=== PATIENT | male | born 1965 | race Caucasian/White ===

== ENCOUNTER 2018-01-03 10:41 | Emergency (ER) | payer OTHER ==
[2018-01-03] MEDS ORDERED: MORPHINE SULFATE INJ 4 MG IVP ONE ×2 (10:47→11:36)
[2018-01-03] MEDS: NITROSTAT SL PRN ×2 (10:47→10:52)
[2018-01-03] MEDS ORDERED: MORPHINE SULFATE INJ 4 MG ONE (10:48)
[2018-01-03] MEDS ORDERED: ZOFRAN INJ 4 MG VIAL IVP ONE (10:49)
--- NOTE | 2018-01-03 10:52 | DR.CP ---
HPI - Time Seen Time seen: 10:45 - Complaint Chief Complaint Doctor Comments: Patient presents with complaint of severe mid- sternal chest pain of acute onset. He states that it feels like an elephant is on his chest. The pain is not relieved by NTG x3. There is no radiating, no diaphoresis. He had a ID [id number] requiring stent(s). 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 He is in moderate distress. PMH - PMH Past Medical History: ID Past Surgical History: Yes - Family History Family Medical History: Cancer, ID, Hypertension - Social History Do you use any recreational Drugs:: No ROS - Review of Systems Constitutional: negative: Diaphoresis Eyes: No Symptoms Reported ENTM: No Symptoms Reported Respiratoy: No Symptoms Reported Cardiovascular: No Symptoms Reported Gastrointestinal/Abdominal: No Symptoms Reported Genitourinary: No Symptoms Reported Neurological: No Symptoms Reported Musculoskeletal: No Symptoms Reported Integumentary: No Symptoms Reported Hematologic/Lymphatic: No Symptoms Reported Endocrine: No Symptoms Reported Psychiatric: No Symptoms Reported All Other Systems: Reviewed and Negative PE - Vitals Vitals: Temperature 98.9 F Pulse Rate 88 Respiratory Rate 20 Blood Pressure [Left Arm] 113/87 Blood Pressure [Right Arm] 158/96 Blood Pressure 169/103 O2 Sat by Pulse Oximetry 99 - General General Appearance: Alert, In Distress - Head Head Exam: Normal Inspection, Atraumatic - Eyes Eye exam: Normal Appearance, PERRL, EOMI - ENT ENT Exam: Normal Exam - Chest Chest Inspection: Normal Inspection, Symmetric Chest Wall Rise - Respiratory Respiratory Exam: Normal Lung Sounds Bilat Respiratory Exam: Bilateral Clear to Auscultation - Cardiovascular Cardiovascular Exam: Regular Rate, Normal Rhythm Pulse: Normal, Radial Edema: Normal - Abdominal Exam Abdominal Exam: Normal Inspection Abdominal Tenderness: negative: RUQ, RLQ, LUQ, LLQ, Epigastrium, Suprapubic, Diffuse, Mild, Moderate, Severe, Other - Extremities Extremities Exam: Normal Inspection, Full ROM - Back Back Exam: Normal Inspection, Full ROM - Neurologic Neurological Exam: Alert, Oriented X3, CN II-XII Intact - Psychiatric Psychiatric Exam: Normal Affect - Skin Skin Exam: Warm, Dry, Intact Course - Reevaluation 1st: Unchanged - Consultation Called: 11:15 (Dr Fried accepted patient for further evaluation) ROR - Labs Reviewed Laboratory Results Reviewed?: Yes (low potassium; Cardiacs negative) Result Diagrams: 02/23/18 10:40 01/03/18 10:40 Laboratory: WBC 10.3 X10^3/uL (3.6-10.0) H 01/03/18 10:40 RBC 5.00 X10^6/uL (4.7-6.0) 01/03/18 10:40 Hgb 15.8 g/dL (13.5-18.0) 01/03/18 10:40 Hct 45.6 % (42.0-54.0) 01/03/18 10:40 MCV 91.2 fL (80.0-100.0) 01/03/18 10:40 MCH 31.6 pg (27.0-34.0) 01/03/18 10:40 MCHC 34.6 g/dL (33.0-35.0) 01/03/18 10:40 RDW 12.7 % (11.6-16.5) 01/03/18 10:40 Plt Count 262 X10^3/uL (150.0-450.0) 01/03/18 10:40 Plt Count Comment Adequate (ADEQUATE) 01/03/18 10:40 MPV 8.3 fL (7.4-11.0) 01/03/18 10:40 Neut % 59.9 % (42.0-75.0) 01/03/18 10:40 Lymph % 30.0 % (21.0-51.0) 01/03/18 10:40 [place] % 8.7 % (0.0-13.0) 01/03/18 10:40 Eos % 0.7 % (0.9-2.9) L 01/03/18 10:40 Baso % 0.7 % (0.2-1.0) 01/03/18 10:40 Neut # 6.2 x10^3/uL (2.2-4.8) H 01/03/18 10:40 Lymph # 3.1 X10^3/uL (1.3-2.9) H 01/03/18 10:40 [place] # 0.9 x10^3/uL (0.3-0.8) H 01/03/18 10:40 Eos # 0.1 x10^3/uL (0.0-0.2) 01/03/18 10:40 Baso # 0.1 X10^3/uL (0.0-0.1) 01/03/18 10:40 Absolute Nucleated RBC 0.1 /100WBC 01/03/18 10:40 Total Counted 100 01/03/18 10:40 Neutrophils % (Manual) 65 % (39-76) 01/03/18 10:40 Band Neutrophils % 3 % (0-10) 01/03/18 10:40 Lymphocytes % (Manual) 20 % (13-43) 01/03/18 10:40 Monocytes % (Manual) 12 % (4-9) H 01/03/18 10:40 Plt Morphology Comment Normal (NORMAL) 01/03/18 10:40 RBC Morphology Normal (NORMAL) 01/03/18 10:40 INR Target Range - 01/03/18 10:40 INR 1.04 (0.8-1.3) 01/03/18 10:40 PTT 27.8 SECONDS (22.9-36.5) 01/03/18 10:40 PTT Comment - 01/03/18 10:40 Sodium 140 mmol/L (136-145) 01/03/18 10:40 Corrected Sodium TNP 01/03/18 10:40 Potassium 3.3 mmol/L (3.5-5.1) L 01/03/18 10:40 Chloride 103 mmol/L (98-107) 01/03/18 10:40 Carbon Dioxide 26.1 mmol/L (21-32) 01/03/18 10:40 BUN 13 mg/dL (7-18) 01/03/18 10:40 Creatinine 1.14 mg/dL (0.70-1.30) 01/03/18 10:40 Est GFR (MDRD) Af Amer > 60 (>60) 01/03/18 10:40 Est GFR (MDRD) Non-Af > 60 (>60) 01/03/18 10:40 Glucose 99 mg/dL (65-99) 01/03/18 10:40 Calcium 9.1 mg/dL (8.5-10.1) 01/03/18 10:40 Corrected Calcium TNP 01/03/18 10:40 Magnesium 1.7 mg/dL (1.7-2.9) 01/03/18 10:40 Total Bilirubin 0.40 mg/dL (0.2-1.0) 01/03/18 10:40 AST 16 Units/L (15-37) 01/03/18 10:40 ALT 31 Units/L (12-78) 01/03/18 10:40 Alkaline Phosphatase 51 Units/L (46-116) 01/03/18 10:40 Creatine Kinase 69 Units/L (39-308) 01/03/18 10:40 CK-MB (CK-2) 1.0 ng/mL (0-4.0) 01/03/18 10:40 CK/CKMB % Calc 1.5 % (<4) 01/03/18 10:40 Troponin I < 0.02 ng/mL (0-1.5) 01/03/18 10:40 Total Protein 7.2 g/dL (6.4-8.2) 01/03/18 10:40 Albumin 3.8 g/dL (3.4-5.0) 01/03/18 10:40 Globulin 3.4 g/dL (2.5-4.5) 01/03/18 10:40 Albumin/Globulin Ratio 1.1 Ratio (1.1-2.1) 01/03/18 10:40 Triglycerides 179 mg/dL (0-150) H 01/03/18 10:40 Cholesterol 211 mg/dL (0-200) H 01/03/18 10:40 LDL Cholesterol, Calc 141 mg/dL (0-100) H 01/03/18 10:40 HDL Cholesterol 34 mg/dL (40-60) L 01/03/18 10:40 Cholesterol/HDL Ratio 6.2 (0.0-5.0) H 01/03/18 10:40 - XRAY XRAY Interpreted by: Radiologist (Chest: No acute cardiopulmonary disease), Self (Heart size slightly enlarged with left perihilar congestion) - EKG Compared to prior EKG Dated: 09/20/14 Block: None ST: Nonsp - Diagnosis Discharge Problem: Hypokalemia Chest pain Qualifiers: Chest pain type: unspecified Qualified Code(s): R07.9 - Chest pain, unspecified - Discharge Plan Condition: Stable - Follow ups/Referrals Follow ups/Referrals: Og Pittman [Primary Care Provider] - 3 days - Instructions
[2018-01-03 10:53] VITALS: BMI 25.7
[2018-01-03 10:58] LABS: BASOPHILS # (AUTO) 0.1 X10^3/uL (0.0-0.1); BASOPHILS % (AUTO) 0.7 % (0.2-1.0); EOSINOPHILS # (AUTO) 0.1 x10^3/uL (0.0-0.2); EOSINOPHILS % (AUTO) 0.7 % (0.9-2.9); HEMATOCRIT 45.6 % (42.0-54.0); HEMOGLOBIN 15.8 g/dL (13.5-18.0); LYMPHOCYTES # (AUTO) 3.1 X10^3/uL (1.3-2.9); MEAN CORPUSCULAR HEMOGLOBIN 31.6 pg (27.0-34.0); MEAN CORPUSCULAR HGB CONC 34.6 g/dL (33.0-35.0); MEAN CORPUSCULAR VOLUME 91.2 fL (80.0-100.0); MEAN PLATELET VOLUME 8.3 fL (7.4-11.0); MONOCYTES # (AUTO) 0.9 x10^3/uL (0.3-0.8); MONOCYTES % (AUTO) 8.7 % (0.0-13.0); NEUTROPHILS # (AUTO) 6.2 x10^3/uL (2.2-4.8); NEUTROPHILS % (AUTO) 59.9 % (42.0-75.0); PLATELET COUNT 262 X10^3/uL (150.0-450.0); RED CELL DISTRIBUTION WIDTH 12.7 % (11.6-16.5); WHITE BLOOD COUNT 10.3 X10^3/uL (3.6-10.0)
[2018-01-03] MEDS ORDERED: ASPIRIN PO SCH (11:00)
[2018-01-03] MEDS ORDERED: NS 1000 ML 1,000 ML IV SCH (11:00)
[2018-01-03 11:07] LABS: CHOL/HDL RATIO 6.2 (0.0-5.0)
[2018-01-03 11:13] LABS: BLOOD UREA NITROGEN 13 mg/dL (7-18); CALCIUM 9.1 mg/dL (8.5-10.1); CARBON DIOXIDE 26.1 mmol/L (21-32); CHLORIDE 103 mmol/L (98-107); CREATININE 1.14 mg/dL (0.70-1.30); SODIUM 140 mmol/L (136-145); TROPONIN I < 0.02 ng/mL (0-1.5); eGFR BLACK RACES > 60 (>60); eGFR NON BLACK RACES > 60 (>60)
[2018-01-03 11:31] LABS: ALANINE AMINOTRANSFERASE 31 Units/L (12-78); ALBUMIN 3.8 g/dL (3.4-5.0); ALKALINE PHOSPHATASE 51 Units/L (46-116); ASPARTATE AMINO TRANSFERASE 16 Units/L (15-37); CKMB % 1.5 % (<4); CREATINE KINASE 69 Units/L (39-308); MAGNESIUM 1.7 mg/dL (1.7-2.9); TOTAL PROTEIN 7.2 g/dL (6.4-8.2)
--- NOTE | 2018-01-03 11:32 | RAD ---
HISTORY: Chest pain Study: Single-view of chest Comparison: September 20, 2014 Findings: The trachea is midline. The cardiac silhouette is unremarkable. The lungs are clear without focal i nfiltrate or effusion. IMPRESSION: 1. No acute cardiopulmonary disease. Reported By:
[2018-01-03 11:33] LABS: BAND NEUTROPHILS % 3 % (0-10)
[2018-01-03 11:35] LABS: PLATELET MORPHOLOGY COMMENT NORMAL (NORMAL)
[2018-01-03 12:44] VITALS: BP 120/83
== END 2018-01-03 12:31 | disposition short-term general hospital (02) ==
LOC: ER 10:46
DX: R07.89 Other chest pain (principal); E87.6 Hypokalemia
CPT/HCPCS: 36415; 71045; 80053; 80061; 82550; 82553; 83735; 84484; 85025; 85610; 85730; 93005; 93010; 96365; 96367; 96374; 96375; 99285; A4222; J2270

== ENCOUNTER 2020-10-01 21:05 | Observation (INO) ==
--- NOTE | 2020-10-01 21:14 | DR.AINTOX ---
HPI - Time Seen Time seen: 21:11 - Complaint Doctors Chief Complaint Comments: EMS states the patient was unresponsive setting in the swing for about ten minutes until they got there and he responded to ammonium nitrate capsule and sternal massage. Patient lethargic and vomited several times enroute to the emergency room. Family said he drank a fifth of [place] Evans in three hours. Patient states he has had three heart attack with the last one a year ago and he has had five stents. States he is a patient of Dr. Pittman and he drinks a couple of beers and denies tobacco or drug usage. He denies chest pain, SOB, cold or cough. - Source History Provided: Patient, EMS - Mode of Arrival Mode of Arrival: EMS - Duration Onset of Chief Complaint: 30 Chief Complaint Onset (Days, Months): Minutes Drinking For:: Hours Altered Mental Status for: unknown - Context Ingested: ETOH Circumstances: Found Unconscious History Of: Alcoholism Last Tetanus: Unknown - Associated Signs and Symptoms Associated Signs and Symptoms: Nausea, Vomiting PMH - PMH Past Medical History: Hypertension, [place] Past Surgical History: Yes Surgical History: Angioplasty/Stents, Other - Family History Family Medical History: Cancer, [place], Hypertension - Social History Do you use any recreational Drugs:: No ROS - Review of Systems Constitutional: No Symptoms Reported Eyes: No Symptoms Reported ENTM: No Symptoms Reported Respiratoy: No Symptoms Reported Cardiovascular: No Symptoms Reported Gastrointestinal/Abdominal: No Symptoms Reported, Nausea, Vomiting Genitourinary: No Symptoms Reported Neurological: No Symptoms Reported Musculoskeletal: No Symptoms Reported Integumentary: No Symptoms Reported Hematologic/Lymphatic: No Symptoms Reported Endocrine: No Symptoms Reported Psychiatric: No Symptoms Reported. negative: See HPI, Anxiety, Depression, Hallucinations, Excessive crying, Suicidal, Other PE - General Limitations: No Limitations General Appearance: Alert, In Distress (moderate) - Head Head Exam: Normal Inspection, Atraumatic, Normocephalic Head Exam Physical: negative: Laceration, Abrasion, Contusion, Hematoma, Raccoon Eyes, Proctor's Sign, Tenderness of Temporal Artery, CSF Rhinorrhea, CSF Otorrhea, Other - Eyes Eye exam: Normal Appearance, PERRL, EOMI. negative: Scleral Icterus, Conj unctival Injection, Nystagmus, Miosis, Mydrasis, Periorbital Swelling, Periorbital Tenderness, Other Pupils: Regular, Round: Bilateral, Reactive: Bilateral Sclera/Conjunctival: Normal Inspection: Bilateral - ENT ENT Exam: Normal Exam, Normal Oropharynx, Normal External Ear Exam, Mucous Membranes Moist, TM's Normal Bilaterally - Neck Neck Exam: Normal Inspection, Full ROM, Trachea Midline - Chest Chest Inspection: Normal Inspection, Symmetric Chest Wall Rise. negative: Tenderness, Rash, Abscess, Other - Respiratory Respiratory Exam: Normal Lung Sounds Bilat Respiratory Exam: Bilateral Clear to Auscultation - Cardiovascular Cardiovascular Exam: Regular Rate, Normal Rhythm, Systolic Murmur - Abdominal Exam Abdominal Exam: Normal Inspection, Normal Bowel Sounds, Soft Abdominal Tenderness: negative: RUQ, RLQ, LUQ, LLQ, Epigastrium, Suprapubic, Diffuse, Mild, Moderate, Severe, Other - Extremities Extremities Exam: Normal Inspection, Full ROM, Normal Capillary Refill. negative: Tenderness, Edema, Joint Swelling, Calf Tenderness, Other - Back Back Exam: Normal Inspection, Full ROM. negative: Tenderness, (R) CVA Tenderness, (L) CVA Tenderness, Muscle Spasm, Paraspinal Tenderness, Vertebral Tenderness, Rashes, (R) Sciatic Notch Tenderness, (L) Sciatic Notch Tendern, (R) Straight Leg Raise, (L) Straight Leg Raise, Other - Neurologic Neurological Exam: Alert, Oriented X3, CN II-XII Intact, Reflexes Normal. negative: Normal Gait (gait not tested) Cranial Nerve Exam: EOM Function (II, III, IV, ): Normal, Facial Sensation (V): Normal, Gag reflex (XI): Normal Motor Strength - LUE: 5/5 Motor Strength - RUE: 5/5 Motor Strength - LLE: 5/5 Motor Strength - RLE: 5/5 Upper Motor Neuron Exam: Babinski Sign: Normal Sensory Exam Upper Extremity: Light Touch: Normal Sensory Exam Lower Extremity: Light Touch: Normal DTR: Patellar (L): 2+, patellar (R): 2+ - Psychiatric Psychiatric Exam: Normal Affect, Normal Mood - Vitals Vital Signs: Temp Pulse Pulse Resp BP BP BP 10/02/20 02:24 18 10/02/20 01:24 20 10/02/20 00:00 100 H 33 H 138/83 10/01/20 23:00 74 19 124/78 10/01/20 22:42 82 16 146/83 10/01/20 22:30 62 14 114/63 10/01/20 22:00 68 16 129/70 10/01/20 21:30 60 16 128/80 10/01/20 21:08 97.6 F 68 18 118/73 10/01/20 21:07 62 18 118/73 09/19/19 10:49 120/77 Pulse Ox 10/02/20 02:24 10/02/20 01:24 10/02/20 00:00 100 10/01/20 23:00 96 10/01/20 22:42 98 10/01/20 22:30 10/01/20 22:00 10/01/20 21:30 10/01/20 21:08 99 10/01/20 21:07 100 09/19/19 10:49 Course - Consultation Called: 02:46 Call Returned: 02:47 (Dr. Pittman to admit) - Education/Counseling Education/Counseling: Patient, Family Educated On: Treatment, Diagnosis, Needs for Follow Up ROR - Labs Reviewed Laboratory Results Reviewed?: Yes (All labs and x-ray results reviewed and discussed with patient) Result Diagrams: 10/01/20 21:33 10/02/20 01:39 - XRAY XRAY Interpreted by: Radiologist (CT head: No evidence of acute intracranial bleed. No mass of midline shift. Soft tissue scalp swelling posterior parietl bone.) - EKG Rate: 82 Isabella: Normal Rhythm: Paced Block: None Hypertrophy: None ST: Old, Ant, Infarct - Labs Reviewed Laboratory: WBC 12.6 X10^3/uL (3.6-10.0) H 10/01/20 21:33 RBC 4.53 X10^6/uL (4.7-6.0) L 10/01/20 21:33 Hgb 14.3 g/dL (13.5-18.0) 10/01/20 21:33 Hct 43.4 % (42.0-54.0) 10/01/20 21:33 MCV 95.8 fL (80.0-100.0) 10/01/20 21:33 MCH 31.6 pg (27.0-34.0) 10/01/20 21:33 MCHC 32.9 g/dL (33.0-35.0) L 10/01/20 21:33 RDW 13.7 % (11.6-16.5) 10/01/20 21:33 Plt Count 240 X10^3/uL (150.0-450.0) 10/01/20 21: MPV 7.8 fL (7.4-11.0) 10/01/20 21:33 Neut % (Auto) 52.2 % (42.0-75.0) 10/01/20 21: Lymph % (Auto) 37.1 % (21.0-51.0) 10/01/20 21: [place] % (Auto) 9.1 % (0.0-13.0) 10/01/20 21: Eos % (Auto) 1.0 % (0.9-2.9) 10/01/20 21: Baso % (Auto) 0.6 % (0.2-1.0) 10/01/20 21: Neut # (Auto) 6.6 x10^3/uL (2.2-4.8) H 10/01/20 21: Lymph # (Auto) 4.7 X10^3/uL (1.3-2.9) H 10/01/20 21:33 [place] # (Auto) 1.2 x10^3/uL (0.3-0.8) H 10/01/20 21:33 Eos # (Auto) 0.1 x10^3/uL (0.0-0.2) 10/01/20 21: Baso # (Auto) 0.1 X10^3/uL (0.0-0.1) 10/01/20 21: Absolute Nucleated RBC 0.1 /100WBC 10/01/20 21: PT 13.4 SECONDS (11.8-14.3) 10/01/20 21:33 INR Target Range - 10/01/20: INR 1.05 (0.8-1.3) 10/01/20 21: APTT 27.6 SECONDS (22.9-36.5) 10/01/20 21: PTT Comment - 10/01/20 21:33 Sodium 139 mmol/L (136-145) 10/02/20 01:39 Corrected Sodium TNP 10/02/20 01:39 Potassium 3.1 mmol/L (3.5-5.1) L 10/02/20 01:39 Chloride 104 mmol/L (98-107) 10/02/20 01:39 Carbon Dioxide 21.2 mmol/L (21-32) 10/02/20 01:39 BUN 17 mg/dL (7-18) 10/02/20 01:39 Creatinine 0.81 mg/dL (0.70-1.30) 10/02/20 01:39 Est GFR (MDRD) Af Amer > 60 (>60) 10/02/20 01:39 Est GFR (MDRD) Non-Af > 60 (>60) 10/02/20 01:39 Glucose 103 mg/dL (65-99) H 10/02/20 01:39 Calcium 8.9 mg/dL (8.5-10.1) 10/02/20 01:39 Corrected Calcium TNP 10/01/20 21:33 Magnesium 1.6 mg/dL (1.7-2.9) L 10/01/20 21:33 Total Bilirubin 0.40 mg/dL (0.2-1.0) 10/01/20 21:33 AST 17 Units/L (15-37) 10/01/20 21:33 ALT 25 Units/L (12-78) 10/01/20 21:33 Alkaline Phosphatase 41 Units/L (46-116) L 10/01/20 21:33 Creatine Kinase 85 Units/L (39-308) 10/01/20 23:20 CK-MB (CK-2) 1.2 ng/mL (0-4.0) 10/01/20 23:20 CK/CKMB % Calc 1.4 % (<4) 10/01/20 23:20 Troponin I < 0.02 ng/mL (0-1.5) 10/01/20 23:20 Total Protein 6.9 g/dL (6.4-8.2) 10/01/20 21:33 Albumin 4.0 g/dL (3.4-5.0) 10/01/20 21:33 Globulin 2.9 g/dL (2.5-4.5) 10/01/20 21:33 Albumin/Globulin Ratio 1.4 Ratio (1.1-2.1) 10/01/20 21:33 Specimen Type Catherized urine 10/01/20 22:53 Urine Color Yellow (YELLOW) 10/01/20 22:53 Urine Appearance Clear (CLEAR) 10/01/20 22:53 Urine pH 6.0 (5.0 - 8.0) 10/01/20 22:53 Ur Specific [place] 1.015 (1.000-1.030) 10/01/20 22:53 Urine Protein Negative (NEGATIVE) 10/01/20 22:53 Urine Glucose (UA) Negative (NEGATIVE) 10/01/20 22:53 Urine Ketones Negative (NEGATIVE) 10/01/20 22:53 Urine Occult Blood 2+ (NEGATIVE) 10/01/20 22:53 Urine Nitrite Negative (NEGATIVE) 10/01/20 22:53 Urine Bilirubin Negative (NEGATIVE) 10/01/20 22:53 Urine Urobilinogen Normal (NORMAL) 10/01/20 22:53 Ur Leukocyte Esterase Negative (NEGATIVE) 10/01/20 22:53 Urine RBC 0-2 /HPF (0-3) 10/01/20 22:53 Urine WBC 0-2 /HPF (0-5) 10/01/20 22:53 Ur Squamous Epith Cells Rare /HPF (NEGATIVE) 10/01/20 22:53 Urine Bacteria Trace /HPF (NEGATIVE) 10/01/20 22:53 Ur Culture Indicated? No/not indicated 10/01/20 22:53 Urine Opiates Screen Negative (NEG=<300) 10/01/20 22:53 Urine Methadone Screen Negative (NEG=<300) 10/01/20 22:53 Ur Barbiturates Screen Negative (NEG=<200) 10/01/20 22:53 Ur Phencyclidine Scrn Negative (NEG=<25) 10/01/20 22:53 Ur Amphetamines Screen Negative (NEG=<1000) 10/01/20 22:53 U Benzodiazepines Scrn Negative (NEG=<200) 10/01/20 22:53 Urine Cocaine Screen Negative (NEG=<300) 10/01/20 22:53 U Marijuana (THC) Screen Negative (NEG=<50) 10/01/20 22:53 Ethyl Alcohol mg/dL 179 mg/dL (0-19.9) H 10/01/20 21:33 SARS-CoV-2 (PCR) Negative (NEGATIVE) 10/02/20 01:40 - XRAY Xray Findings: CXR: Evidence of cardiomegaly. Finding consistent with CHF. COPD/emphysema stable. (MARGARET CERNA) Opioid - Opioid Risk Tool Age (Jose Manuel box if 16-45): No History of Preadolescent Sexual Abuse: No Total: 0 Total Score Risk Category: Low Risk - Diagnosis Discharge Problem: Bronchitis, Chest pain in adult, Hypokalemia, COPD (chronic obstructive pulmonary disease), Hyperglycemia Syncope Qualifiers: Encounter type: initial encounter Alcohol intoxication in active alcoholic Qualifiers: Complication of substance-induced condition: uncomplicated Qualified Code(s): F10.220 - Alcohol dependence with intoxication, uncomplicated - Discharge Plan Disposition: ADMITTED INPATIENT Condition: Stable - Follow ups/Referrals Follow ups/Referrals: Og Pittman [Primary Care Provider] - 3 days - Instructions
[2020-10-01] MEDS ORDERED: NS 1000 ML 1,000 ML ONE (21:27)
--- NOTE | 2020-10-01 21:38 | CT ---
HISTORYSYNCOPE alcohol intoxication vomiting.STUDYBRAIN W/O CONCOMPARISONNoneTECHNIQUEMultiple CT axial images of the head were obtained without IV contrast. Coronal and sagittal images were reconstructed. Dose reduction techniques included Automated Exposure Control (AEC) and adjustment of mA and kV.FINDINGSGray and white matter have normal differentiation. There is no mass, shift, or hemorrhage. Cerebellar tonsils are at an appropriate level. No fluid in the sinuses or mucosal thickening to suggest sinusitis. There is no mastoid effusion.IMPRESSION1. No acute findingElectronically signed by: Nathan Jensen (Oct 01, 2020 21:36:37)
--- NOTE | 2020-10-01 21:38 | RAD ---
EXAM: CHEST X-RAYHISTORY: Chest pain.TECHNIQUE: AP chest x-ray dated 10/01/2020 at 9:18 PM.COMPARISON: CXR dated May 01, 2019.FINDINGS:There is interval appearance of a left anterior chest wall subclavian cardiac pacer with intact pacer wires to the right atrium and right ventricle.There is evidence for cardiomegaly. The pulmonary vascularity and interstitial markings are diffusely prominent, especially in the lower lung stoner, in keeping with mild CHF or volume overload in the appropriate clinical setting; differential diagnosis includes (but is not limited to) mild bronchitis and interstitial pneumonia in the appropriate clinical setting.There is lung parenchymal hyperlucency in keeping with COPD/emphysema (stable). There is no gross focal lung consolidation, pleural effusion, or pneumothorax seen. The visualized bony structures are within normal limits.IMPRESSION:1. Findings consistent with mild CHF or volume overload in the appropriate clinical setting (new findings); DDX includes (but is not limited to) mild bronchitis and interstitial pneumonia (rule out Covid pneumonia) in the appropriate clinical setting. Recommend clinical correlation and appropriate follow evaluation to ensure interval clearance as clinically warranted.2. Lung parenchymal hyperlucency in keeping with COPD/emphysema (stable).Electronically signed by: Mike Martinez (Oct 01, 2020 21:35:55)
[2020-10-01 21:45] LABS: BASOPHILS # (AUTO) 0.1 X10^3/uL (0.0-0.1); BASOPHILS % (AUTO) 0.6 % (0.2-1.0); EOSINOPHILS # (AUTO) 0.1 x10^3/uL (0.0-0.2); HEMATOCRIT 43.4 % (42.0-54.0); HEMOGLOBIN 14.3 g/dL (13.5-18.0); LYMPHOCYTES # (AUTO) 4.7 X10^3/uL (1.3-2.9); LYMPHOCYTES % (AUTO) 37.1 % (21.0-51.0); MEAN CORPUSCULAR HEMOGLOBIN 31.6 pg (27.0-34.0); MEAN CORPUSCULAR HGB CONC 32.9 g/dL (33.0-35.0); MEAN CORPUSCULAR VOLUME 95.8 fL (80.0-100.0); MEAN PLATELET VOLUME 7.8 fL (7.4-11.0); MONOCYTES # (AUTO) 1.2 x10^3/uL (0.3-0.8); MONOCYTES % (AUTO) 9.1 % (0.0-13.0); NEUTROPHILS # (AUTO) 6.6 x10^3/uL (2.2-4.8); NEUTROPHILS % (AUTO) 52.2 % (42.0-75.0); PLATELET COUNT 240 X10^3/uL (150.0-450.0); RED BLOOD COUNT 4.53 X10^6/uL (4.7-6.0); RED CELL DISTRIBUTION WIDTH 13.7 % (11.6-16.5); WHITE BLOOD COUNT 12.6 X10^3/uL (3.6-10.0)
[2020-10-01] MEDS ORDERED: NS 1000 ML 1,000 ML IV SCH (22:00)
[2020-10-01 22:19] LABS: ALANINE AMINOTRANSFERASE 25 Units/L (12-78); ALKALINE PHOSPHATASE 41 Units/L (46-116); ASPARTATE AMINO TRANSFERASE 17 Units/L (15-37); BLOOD ALCOHOL 179 mg/dL (0-19.9); BLOOD UREA NITROGEN 20 mg/dL (7-18); CALCIUM 8.9 mg/dL (8.5-10.1); CARBON DIOXIDE 24.1 mmol/L (21-32); CHLORIDE 103 mmol/L (98-107); CKMB % 1.1 % (<4); COR NA(FOR HYPERGLY) 141 mmol/L (136-145); CREATINE KINASE 88 Units/L (39-308); CREATININE 0.91 mg/dL (0.70-1.30); MAGNESIUM 1.6 mg/dL (1.7-2.9); SODIUM 140 mmol/L (136-145); TOTAL PROTEIN 6.9 g/dL (6.4-8.2); TROPONIN I < 0.02 ng/mL (0-1.5); eGFR NON BLACK RACES > 60 (>60)
[2020-10-01] MEDS ORDERED: KLOR-CON PO ONE (22:32)
[2020-10-01] MEDS ORDERED: KLOR-CON ONE (22:34)
[2020-10-01] MEDS ORDERED: ZOFRAN INJ 4 MG VIAL IVP ONE (22:38)
[2020-10-01] MEDS ORDERED: ZOFRAN INJ 4 MG VIAL ONE (22:39)
[2020-10-01 23:09] LABS: BILIRUBIN,URINE NEGATIVE (NEGATIVE); BLOOD/HEMOGLOBIN,URINE 2+ (NEGATIVE); GLUCOSE, URINE NEGATIVE (NEGATIVE); KETONES,URINE NEGATIVE (NEGATIVE); LEUKOCYTE ESTERASE ,URINE NEGATIVE (NEGATIVE); NITRITES,URINE NEGATIVE (NEGATIVE); PROTEIN,URINE NEGATIVE (NEGATIVE); UROBILINOGEN,URINE NORMAL (NORMAL)
[2020-10-01 23:38] LABS: APPEARANCE,URINE CLEAR (CLEAR); COLOR,URINE YELLOW (YELLOW)
[2020-10-01 23:48] LABS: CKMB % 1.4 % (<4); CREATINE KINASE 85 Units/L (39-308); CREATINE KINASE MB 1.2 ng/mL (0-4.0); TROPONIN I < 0.02 ng/mL (0-1.5)
--- NOTE | 2020-10-02 00:25 | CT ---
STUDY: CT HEAD WITHOUT IV CONTRASTCOMPARISON: NoneTECHNIQUE: axial images were acquired of the head without IV contrast. Coronal and sagittal images were provided. All images were reviewed in a variety of windows and levels.LIMITATIONS: Please note that CT has low sensitivity and accuracy for identifying acute infarction. In addition, there are portions of the brain that are affected by beam hardening artifact which further greatly limits identification of an acute infarct.RADIATION REDUCTION TECHNIQUE: Automated exposure control, Adjustment of the mA and/or kV according to patient size, or iterative reconstruction techniques were used.HISTORY: UNRESPONSIVE, SIEZURE ACTIVITYFINDINGS: Soft tissue scalp swelling is seen overlying the posterior parietal bone near midline within underlying nodule measuring 22 x 11 mm..There is no evidence of an acute intracranial bleed.There is no evidence of a mass or midline shift.There is no evidence of an extra-axial fluid collection.The adams-white matter differentiation is within normal limits.The visualized bones are unremarkable.The visualized sinuses are clear.The mastoid air cells are well-aerated.IMPRESSION:THERE IS NO EVIDENCE OF AN ACUTE INTRACRANIAL BLEEDElectronically signed by: Scottie Peacock (Oct 02, 2020 00:23:37)
[2020-10-02] MEDS ORDERED: NITRO-BID OINT 2% UD (E.R. USE ONLY) TD ONE (01:08)
[2020-10-02] MEDS ORDERED: TYLENOL 325 MG TAB PO ONE ×3 (01:10→19:56)
[2020-10-02] MEDS ORDERED: NITRO-BID OINT 2% UD (E.R. USE ONLY) ONE (01:15)
[2020-10-02 01:24] LABS: BACTERIA,URINE TRACE /HPF (NEGATIVE); RBC,URINE 0-2 /HPF (0-3); SQUAMOUS EPITHELIAL CELL,UR RARE /HPF (NEGATIVE)
[2020-10-02] MEDS ORDERED: ROCEPHIN VIAL 1 GRAM 1 G in NS 100 ML IV + SPIKE MINIBAG* 100 ML IV ONE (01:36)
[2020-10-02 01:54] LABS: BLOOD UREA NITROGEN 17 mg/dL (7-18); CALCIUM 8.9 mg/dL (8.5-10.1); CARBON DIOXIDE 21.2 mmol/L (21-32); CHLORIDE 104 mmol/L (98-107); CREATININE 0.81 mg/dL (0.70-1.30); SODIUM 139 mmol/L (136-145); eGFR NON BLACK RACES > 60 (>60)
[2020-10-02] MEDS: ROCEPHIN 1 GRAM IV PREMIX 1 G/50 ML IV.SOLN. IV ONE ×2 (02:22→02:25)
[2020-10-02] MEDS ORDERED: MAGNESIUM SULFATE 1 GRAM/100 mL PREMIX 1 G/100 ML BAG IV ONE (02:46)
[2020-10-02] MEDS ORDERED: NS 1/2 + KCL 20 MEQ/L 1,000 ML IV ONE (03:08)
[2020-10-02] MEDS: NS 1/2 + KCL 20 MEQ/L 1,000 ML IV SCH ×4 (03:11→22:25)
[2020-10-02 03:31] LABS: BASOPHILS % (AUTO) 0.2 % (0.2-1.0); EOSINOPHILS % (AUTO) 0.1 % (0.9-2.9); HEMOGLOBIN 13.8 g/dL (13.5-18.0); LYMPHOCYTES # (AUTO) 2.4 X10^3/uL (1.3-2.9); LYMPHOCYTES % (AUTO) 24.7 % (21.0-51.0); MEAN CORPUSCULAR HEMOGLOBIN 31.6 pg (27.0-34.0); MEAN CORPUSCULAR HGB CONC 32.8 g/dL (33.0-35.0); MEAN CORPUSCULAR VOLUME 96.3 fL (80.0-100.0); MEAN PLATELET VOLUME 7.8 fL (7.4-11.0); MONOCYTES # (AUTO) 0.4 x10^3/uL (0.3-0.8); MONOCYTES % (AUTO) 4.2 % (0.0-13.0); NEUTROPHILS # (AUTO) 6.7 x10^3/uL (2.2-4.8); NEUTROPHILS % (AUTO) 70.8 % (42.0-75.0); PLATELET COUNT 183 X10^3/uL (150.0-450.0); RED BLOOD COUNT 4.36 X10^6/uL (4.7-6.0); RED CELL DISTRIBUTION WIDTH 13.6 % (11.6-16.5); WHITE BLOOD COUNT 9.5 X10^3/uL (3.6-10.0)
[2020-10-02 03:49] LABS: ALANINE AMINOTRANSFERASE 23 Units/L (12-78); ALBUMIN 3.6 g/dL (3.4-5.0); ALKALINE PHOSPHATASE 38 Units/L (46-116); ASPARTATE AMINO TRANSFERASE 13 Units/L (15-37); BLOOD UREA NITROGEN 15 mg/dL (7-18); CALCIUM 8.5 mg/dL (8.5-10.1); CARBON DIOXIDE 22.4 mmol/L (21-32); CHLORIDE 106 mmol/L (98-107); CHOL/HDL RATIO 2.6 (0.0-5.0); CHOLESTEROL 113 mg/dL (0-200); CKMB % 1.2 % (<4); CREATINE KINASE 82 Units/L (39-308); CREATININE 0.84 mg/dL (0.70-1.30); HDL CHOLESTEROL 44 mg/dL (40-60); SODIUM 142 mmol/L (136-145); TOTAL PROTEIN 6.1 g/dL (6.4-8.2); TRIGLYCERIDES 63 mg/dL (0-150); TROPONIN I < 0.02 ng/mL (0-1.5); eGFR NON BLACK RACES > 60 (>60)
[2020-10-02] MEDS ORDERED: ZOFRAN INJ 4 MG VIAL IVP PRN (04:11)
[2020-10-02 05:53] VITALS: BMI 24.7
[2020-10-02 09:35] LABS: CKMB % 1.1 % (<4); CREATINE KINASE 89 Units/L (39-308); CREATINE KINASE MB < 1.0 ng/mL (0-4.0); TROPONIN I < 0.02 ng/mL (0-1.5)
[2020-10-02] MEDS: NITRO-BID OINT 2% Multi-Dose tube TD SCH ×2 (11:14→15:22)
--- NOTE | 2020-10-02 11:29 | DR.H&P ---
H&P - History & Physical for Day of: H&P Date: 10/02/20 - Chief Complaint Chief Complaint: SYNCOPE, ALCOHOL INTOXICATION, VOMITING - History of Present Illness History of Present Illness: IS A 55 YEAR OLD PATIENT OF OURS WHO PRESENTED TO THE ER VIA EMS. EMS REPORTS THAT ON ARRIVAL TO SCENE, HE WAS UNRESPONSIVE, SITTING IN THE SWING. PATIENTS SPOUSE REPORTS THAT HE HAD BEEN UNRESPONSIVE FOR APPROXIMATELY TEN MINUTES. EMS REPORTS THAT PATIENT RESPONDED TO AMMONIUM NITRATE CAPSULE AND STERNAL MASSAGE. THEY REPORT THAT PATIENT WAS LETHARGIC AND VOMITED SEVERAL TIMES ENROUTE TO THE ER. FAMILY MEMBERS REPORT THAT PATIENT DRANK A FIFTH OF LINNEA HENRY IN A THREE HOUR DURATION. PATIENT DOES HAVE A HISTORY OF HEART ATTACK X 3, STENTS X 5, PACEMAKER, AND DEFIBRILLATOR. FAMILY MEMEBERS STATE THAT PATIENT IS NOT USUALLY A HEAVY DRINKER, THAT HE USUALLY ONLY HAS 2-3 BEER PER NIGHT. ON ARRIVAL TO THE ER, PATIENT WAS LETHARGIC. ON ARRIVAL, VITALS WERE 97.6-68-18-99%-118/73. LABS WERE OBTAINED. ABNORMAL LAB VALUES INCLUDE THE FOLLOWING: WBC 12.6, RBC 4.53, POTASSIUM 2.7, BUN 20, GLUCOSE 148, MAGNESIUM 1.6, ALK PHOS 41. CARDIAC ENZYMES WERE WITHIN NORMAL LIMITS. URINALYSIS UNREMARKABLE. ETHYL ALCOHOL LEVEL WAS 179, OTHERWISE, TOXICOLOGY WAS NEGATIVE. COVID-19 NEGATIVE. EKG REVEALED: SINUS RHYTHM WITH HR 76. A CHEST XRAY WAS OBTAINED AND REVEALED: 1. Findings consistent with mild CHF or volume overload in the appropriate clinical setting (new findings); DDX includes (but is not limited to) mild bronchitis and interstitial pneumonia (rule out Covid pneumonia) in the appropriate clinical setting. 2. Lung parenchymal hyperlucency in keeping with COPD/emphysema (stable). A BRAIN CT WAS OBTAINED AT 21:13 AND REVEALED: NO ACUTE FINDINGS. BRAIN CT WAS REPEATED AT 23:13 AND REVEALED: Soft tissue scalp swelling is seen overlying the posterior parietal bone near midline within underlying nodule measuring 22 x 11mm. No acute intracranial bleed. HE WAS GIVEN ROCEPHIN 1G IV X 1, MAGNESIUM SULFATE, ZOFRAN 4MG IV X 1, NITRO BID OINTMENT X 1, TYLENOL 650MG PO X 1 DOSE, AND KLOR- CON 50MEQ PO X 1 WHEN HE BECAME MORE ALERT. WAS ADMITTED FOR FURTHER EVALUATION AND TREATMENT OF SYNCOPE AND ALCOHOL INTOXICATION. HE WAS STARTED ON 1/2NS WITH 20MEQ KCL, ZOFRAN 4MG IV Q8H PRN, AND NITRO-BID OINTMENT Q6H PRN. WE WILL REPEAT SERIAL CARDIAC ENZYMES AND EKGS. OTHERWISE, WE WILL FOLLOW UP WITH AM LABS AND CONTINUE TO MONITOR. - Past Medical History Past Medical History: Coronary Artery Disease, Hypertension, [place] - Past Surgical History Surgical History: Angioplasty/Stents Additional Surgical History: PACEMAKER, DEFIBRILLATOR - Family History Family Medical History: Cancer, [place], Hypertension - Social History Does patient currently use any type of tobacco product: No Have you used tobacco products in the last 12 months: No Type of Tobacco Use: None Does any household member use tobacco: No Alcohol Use: Heavy Drug Use: None - Medications Home Medications: No Known Drug Allergies Allergy (Verified 09/19/19 09:07) CONTINUE taking the following medications aspirin 81 mg PO DAILY 10/02/20 [History] atorvastatin 80 mg PO QHS 10/02/20 [History] carvedilol 3.125 mg PO BID 10/02/20 [History] escitalopram oxalate [Lexapro] 10 mg PO DAILY 10/02/20 [History] sacubitril-valsartan [Entresto] 1 tab PO BID 10/02/20 [History] spironolactone 12.5 mg PO DAILY 10/02/20 [History] ticagrelor [Brilinta] 90 mg PO BID 10/02/20 [History] - Review of Systems Constitutional: Weakness Eyes: No Symptoms Reported ENT: No Symptoms Reported Respiratory: No Symptoms Reported Cardiovascular: No Symptoms Reported Gastrointestinal: See HPI, Nausea, Vomiting Genitourinary: No Symptoms Reported Musculoskeletal: No Symptoms Reported Skin: No Symptoms Reported Neurological: See HPI, Weakness, Incoordination, Other (LETHARGY ) - Physical Exam Vital Signs: Temperature 97.8 F Pulse Rate [Right Brachial] 79 Pulse Rate 68 Respiratory Rate 20 Blood Pressure [Right Arm] 113/69 Blood Pressure [Left Arm] 118/73 Blood Pressure 118/73 O2 Sat by Pulse Oximetry 99 Oriented: Unable to test Eyes: Normal Ear: Normal Nose: Normal Throat: Normal Respiratory: Diminished Throughout Cardiovascular: Normal : Normal Auscultation: Bowel Sounds: Normal Palpation: Normal Tenderness: Normal Skin: Normal Musculoskeletal: Normal Psychiatric: Other (LETHARGIC ) - Assessment/Plan (1) Syncope Qualifiers: Encounter type: initial encounter Status: Acute Plan: 1/2NS WITH 20MEQ KCL, ZOFRAN 4MG IV Q8H PRN, AND NITRO-BID OINTMENT Q6H PRN, SERIAL CARDIAC ENZYMES AND EKGs (2) Alcohol intoxication in active alcoholic Qualifiers: Complication of substance-induced condition: uncomplicated Qualified Code(s): F10.220 - Alcohol dependence with intoxication, uncomplicated Status: Acute - Allergies Allergies/Adverse Reactions: Allergies Allergy/AdvReac Type Severity Reaction Status Date / Time No Known Drug Allergies Allergy Verified 09/19/19 09:07
[2020-10-02] MEDS: ENTRESTO 24/26 MG TAB PO SCH ×2 (12:17→20:06)
[2020-10-02] MEDS ORDERED: LEXAPRO ONE (12:25)
[2020-10-02] MEDS: COREG TAB 3.125 MG PO SCH ×2 (12:26→20:07)
[2020-10-02] MEDS: BRILINTA PO SCH ×2 (12:26→20:05)
[2020-10-02] MEDS: ALDACTONE TAB 25 MG PO SCH (12:26)
[2020-10-02] MEDS: LEXAPRO PO SCH (12:26)
[2020-10-02] MEDS ORDERED: NITROSTAT SL PRN (15:23)
[2020-10-02 15:46] LABS: CKMB % 1.4 % (<4); CREATINE KINASE 74 Units/L (39-308); CREATINE KINASE MB < 1.0 ng/mL (0-4.0); TROPONIN I < 0.02 ng/mL (0-1.5)
[2020-10-02] MEDS ORDERED: TYLENOL 325 MG TAB PO PRN (19:53)
[2020-10-02] MEDS ORDERED: LIPITOR TAB 40 MG PO SCH (21:00)
[2020-10-03] MEDS: NS 1/2 + KCL 20 MEQ/L 1,000 ML IV SCH ×2 (02:50→06:19)
[2020-10-03 05:26] LABS: BASOPHILS % (AUTO) 0.5 % (0.2-1.0); EOSINOPHILS % (AUTO) 0.8 % (0.9-2.9); HEMATOCRIT 41.8 % (42.0-54.0); HEMOGLOBIN 14.3 g/dL (13.5-18.0); LYMPHOCYTES % (AUTO) 31.3 % (21.0-51.0); MEAN CORPUSCULAR HEMOGLOBIN 32.7 pg (27.0-34.0); MEAN CORPUSCULAR HGB CONC 34.3 g/dL (33.0-35.0); MEAN CORPUSCULAR VOLUME 95.3 fL (80.0-100.0); MEAN PLATELET VOLUME 7.7 fL (7.4-11.0); MONOCYTES # (AUTO) 0.5 x10^3/uL (0.3-0.8); MONOCYTES % (AUTO) 8.8 % (0.0-13.0); NEUTROPHILS # (AUTO) 3.7 x10^3/uL (2.2-4.8); NEUTROPHILS % (AUTO) 58.6 % (42.0-75.0); PLATELET COUNT 174 X10^3/uL (150.0-450.0); RED BLOOD COUNT 4.39 X10^6/uL (4.7-6.0); RED CELL DISTRIBUTION WIDTH 13.5 % (11.6-16.5); WHITE BLOOD COUNT 6.2 X10^3/uL (3.6-10.0)
[2020-10-03 05:45] LABS: ALANINE AMINOTRANSFERASE 24 Units/L (12-78); ALBUMIN 3.3 g/dL (3.4-5.0); ALKALINE PHOSPHATASE 38 Units/L (46-116); ASPARTATE AMINO TRANSFERASE 18 Units/L (15-37); BLOOD UREA NITROGEN 12 mg/dL (7-18); CALCIUM 8.6 mg/dL (8.5-10.1); CHLORIDE 107 mmol/L (98-107); COR CA(FOR HYPOALB) 9.2 mg/dL (8.5-10.1); CREATININE 0.79 mg/dL (0.70-1.30); SODIUM 141 mmol/L (136-145); TOTAL PROTEIN 5.9 g/dL (6.4-8.2); eGFR NON BLACK RACES > 60 (>60)
[2020-10-03 05:51] LABS: CARBON DIOXIDE 26.4 mmol/L (21-32)
[2020-10-03] MEDS ORDERED: LEXAPRO ONE (08:46)
[2020-10-03] MEDS: COREG TAB 3.125 MG PO SCH (08:48)
[2020-10-03] MEDS: ALDACTONE TAB 25 MG PO SCH (08:49)
[2020-10-03] MEDS: LEXAPRO PO SCH (08:49)
[2020-10-03] MEDS: ENTRESTO 24/26 MG TAB PO SCH (08:50)
[2020-10-03] MEDS: BRILINTA PO SCH (08:50)
[2020-10-03] MEDS ORDERED: ASPIRIN EC 81 MG PO SCH (09:00)
[2020-10-03] MEDS ORDERED: PREVNAR 13 IM ONE (09:16)
[2020-10-03] MEDS ORDERED: PNEUMOVAX 23 IM ONE (10:00)
--- NOTE | 2020-10-03 10:51 | CT ---
HISTORYF/U TO HEMATOMA / NODULESTUDYBRAIN W/O CONCOMPARISONHead CT 10/01/2020TECHNIQUEMultiple CT axial images of the head were obtained without IV contrast. Coronal and sagittal images were reconstructed. Dose reduction techniques included Automated Exposure Control (AEC) and adjustment of mA and kV.FINDINGSScalp nodule is unchanged measuring 22 x 9 mm when compared to 11:34 p.m. 10/01/2020. It is larger and more convex when compared to 09:23 p.m. 10/01/2020 where it was a relatively flat and more subtle lesion. This suggests that this could be a small scalp hematoma.The brain otherwise has no significant abnormality. No acute infarct or hemorrhage. Ventricles stable in size. No sinusitis. No calvarium fracture.IMPRESSION1. Small stable scalp hematomaElectronically signed by: Nathan Jensen (Oct 03, 2020 10:49:04)
[2020-10-03 15:23] VITALS: BP 117/79
== END 2020-10-03 15:15 | disposition home or self-care (01) ==
LOC: ER 21:05 → MED/SURG 21:05 → ICU 10-02 05:00
PROVIDERS: ADMIT Internal Medicine; ATTEND Internal Medicine
DX: Z95.0 Presence of cardiac pacemaker; I10 Essential (primary) hypertension; R94.31 Abnormal electrocardiogram [ECG] [EKG]; R07.89 Other chest pain; I25.10 Atherosclerotic heart disease of native coronary artery without angina pectoris; R50.9 Fever, unspecified; Z20.828 Contact with and (suspected) exposure to other viral communicable diseases; J44.9 Chronic obstructive pulmonary disease, unspecified; Z23 Encounter for immunization; F10.129 Alcohol abuse with intoxication, unspecified; J20.8 Acute bronchitis due to other specified organisms; R55 Syncope and collapse

== ENCOUNTER 2022-02-20 16:28 | Observation (INO) ==
--- NOTE | 2022-02-20 16:42 | DR.CP ---
HPI Time Seen Time Seen by Provider: 02/20/22 16:41 HPI Comment HPI Comment: PATIENT IS 57YR OLD MALE IN ER WITH NAUSEA, VOMITING, AND DIARRHEA THAT STARTED YESTERDAY AND DIZZNESS WEAKNESS TODAY. PATIENT STARTED HAVING CHEST PAIN AND DIAPHORESIS 2 HRS AGO. DENIES DYSURIA, FEVER OR URI SYMPTOMS. Complaint Chief Complaint Doctor Comments: NAUSEA, VOMITING, DIARRHEA SINCE YESTERDAY WITH DIZZINESS AND WEAKNESS. TODAY DIAPHORESIS AND CHEST PAIN SINCE 14:00PM. Chief Complaint:: Per patient, he's been having nausea and diarrhea since yesterday, as well as dizziness and weakness in the arms. Today, pt broke out in a cold sweat and started having chest pain around 1400 and then again during triage. COVID-19 Coronavirus risk:travel/contact w/high risk person: No Has patient experienced Coronavirus symptoms: No Reviewed Nurses Notes Review: Yes Source History Provided: Patient Mode of Arrival Mode of Arrival: Ambulatory Timing Onset of Chief Complaint: 02/20/22 Came on: Suddenly Duration Duration: Constant Duration: Days Location Location of Chest Pain: Left and Chest Chest Pain Radiation Location: None Context Onset: At rest Cardiac Risk Factors: HTN PE Risk Factors: None History of: None Prehospital Care: None Quality Quality: Sharp Severity Severity: Moderate Modifying Factors Worsens: Exertion Impoves: Rest Associated Signs and Symptoms Associated Signs and Symptoms: Diaphoresis PMH PMH Past Medical History: Yes Past Medical History: Coronary Artery Disease, Hypertension and [place] Past Surgical History: Yes Surgical History: Angioplasty/Stents and Other Past Surgical History Comment: pacemaker/defib Family History History of Family Medical Conditions: No Family Medical History: Hypertension Social History Alcohol Use: None Do you use any recreational Drugs:: No Lives With: Spouse Lives Where: Home Travel Risk Coronavirus risk:travel/contact w/high risk person: No Has patient experienced Coronavirus symptoms: No Infectious screening In the last 2 months have you had wt loss of >10#?: NO Have you had fever, night sweats or hemotysis?: No Have you traveled outside the country in the last 6 months?: No Isolation: Standard ROS Review of Systems Constitutional: See HPI, Weakness and Fatigue; negative Fever Eyes: No Symptoms Reported and See HPI; negative Blurred Vision and Diplopia ENTM: No Symptoms Reported and See HPI; negative Nose Discharge and Nose Congestion Respiratoy: No Symptoms Reported and See HPI; negative Moist Cough, Short of Breath and Wheezing Cardiovascular: See HPI and Chest Pain Gastrointestinal/Abdominal: See HPI, Abdominal Pain, Diarrhea, Nausea and Vomiting Genitourinary: No Symptoms Reported and See HPI; negative Dysuria, Frequency and Hematuria Neurological: No Symptoms Reported, See HPI, Weakness and Dizziness; negative Headache Musculoskeletal: No Symptoms Reported and See HPI Integumentary: No Symptoms Reported and See HPI; negative Rash and Juandice Hematologic/Lymphatic: No Symptoms Reported and See HPI; negative Easy Bruising Endocrine: No Symptoms Reported and See HPI; negative Increased Thirst and Increased Urine Psychiatric: No Symptoms Reported and See HPI All Other Systems: Reviewed and Negative PE Vitals Vitals: Temperature 98.3 F Pulse Rate 96 Respiratory Rate 21 Blood Pressure [Right Arm] 117/79 Blood Pressure 112/78 O2 Sat by Pulse Oximetry 97 General Limitations: No Limitations General Appearance: Alert and In No Apparent Distress Head Head Exam: Normal Inspection Eyes Eye exam: Normal Appearance; negative Scleral Icterus and Conjunctival Injection ENT ENT Exam: Normal Exam, Normal Oropharynx, Normal External Ear Exam and TM's Normal Bilaterally Chest Chest Inspection: Normal Inspection and Symmetric Chest Wall Rise; negative Te nderness Respiratory Respiratory Exam: Normal Lung Sounds Bilat; negative Accessory Muscle Use, Chest Wall Tenderness and Respiratory Distress Respiratory Exam: Bilateral: Clear to Auscultation Cardiovascular Cardiovascular Exam: Regular Rate, Normal Rhythm and Normal Heart Sounds; negative Systolic Murmur and Diastolic Murmur Pulse: Normal Edema: Normal Abdominal Exam Abdominal Exam: Normal Bowel Sounds, Soft and Tenderness Abdominal Tenderness: Diffuse and Moderate Extremities Extremities Exam: Normal Inspection and Normal Capillary Refill Back Back Exam: Normal Inspection; negative (R) CVA Tenderness and (L) CVA Tenderness Neurologic Neurological Exam: Alert and Oriented X3; negative Motor Sensory Deficit Psychiatric Psychiatric Exam: Normal Affect and Normal Mood Skin Skin Exam: Warm, Dry, Intact and Normal Color MDM Differential Diagnosis Differential Diagnosis: Cholelithasis, Gastritis (GASTROENTERITIS), Myocardial Infarction, Pericarditis, Pleuritis, Pancreatitis, Pneumonia and Pneumothorax COURSE Treatment Treatment: SEE ORDERS DONE WHILE PATIENT WAS IN ER. NS 125MG/HR IV GIVEN IN ER. LABS AND ERKG AND XRAY REPORT DISCUSSED WITH PATIENT. ADMITTED TO HOSPITAL FOR FURTHER MANAGEMENT. Education/Counseling Education Comments: DISCUSSED PATIENT WITH DR. BUENO. HE WILL ADMIT PATIENT. [facility]OR Labs Reviewed Laboratory Results Reviewed?: Yes Result Diagrams: 02/21/22 05:35 02/21/22 05:35 Laboratory: 02/20/22 17:38 Blood Blood Culture - Final 02/20/22 17:30 Blood Blood Culture - Final 02/20/22 17:31 Stool Stool Culture - Final 02/20/22 17:31 Stool - Final WBC 8.5 X10^3/uL (3.6-10.0) 02/20/22 17:54 RBC 5.44 X10^6/uL (4.7-6.0) 02/20/22 17:54 Hgb 17.4 g/dL (13.5-18.0) 02/20/22 17:54 Hct 50.4 % (42.0-54.0) 02/20/22 17:54 MCV 92.6 fL (80.0-100.0) 02/20/22 17:54 MCH 32.0 pg (27.0-34.0) 02/20/22 17:54 MCHC 34.5 g/dL (33.0-35.0) 02/20/22 17:54 RDW 13.7 % (11.6-16.5) 02/20/22 17:54 Plt Count 226 X10^3/uL (150.0-450.0) 02/20/22 17:54 MPV 7.5 fL (7.4-11.0) 02/20/22 17:54 Neut % (Auto) 83.3 % (42.0-75.0) H 02/20/22 17:54 Lymph % (Auto) 8.1 % (21.0-51.0) L 02/20/22 17:54 [place] % (Auto) 8.2 % (0.0-13.0) 02/20/22 17:54 Eos % (Auto) 0.1 % (0.9-2.9) L 02/20/22 17:54 Baso % (Auto) 0.3 % (0.2-1.0) 02/20/22 17:54 Neut # (Auto) 7.1 x10^3/uL (2.2-4.8) H 02/20/22 17:54 Lymph # (Auto) 0.7 X10^3/uL (1.3-2.9) L 02/20/22 17:54 [place] # (Auto) 0.7 x10^3/uL (0.3-0.8) 02/20/22 17:54 Eos # (Auto) 0.0 x10^3/uL (0.0-0.2) 02/20/22 17:54 Baso # (Auto) 0.0 X10^3/uL (0.0-0.1) 02/20/22 17:54 Absolute Nucleated RBC 0.0 /100WBC 02/20/22 17:54 D-Dimer < 0.27 ug/ml (0.0-0.57) 02/20/22 17:54 Sodium 136 mmol/L (136-145) 02/20/22 17:30 Corrected Sodium 137 mmol/L (136-145) 02/20/22 17:30 Potassium 3.4 mmol/L (3.5-5.1) L 02/20/22 17:30 Chloride 102 mmol/L (98-107) 02/20/22 17:30 Carbon Dioxide 14.3 mmol/L (21-32) L* 02/20/22 17:30 BUN 28 mg/dL (7-18) H 02/20/22 17:30 Creatinine 1.52 mg/dL (0.70-1.30) H 02/20/22 17:30 Est GFR (MDRD) Af Amer > 60 (>60) 02/20/22 17:30 Est GFR (MDRD) Non-Af 50 (>60) L 02/20/22 17:30 Glucose 131 mg/dL (65-99) H 02/20/22 17:30 Lactic Acid 0.9 mmol/L (0.4-2.0) 02/20/22 17:30 Calcium 9.2 mg/dL (8.5-10.1) 02/20/22 17:30 Corrected Calcium TNP 02/20/22 17:30 Total Bilirubin 0.70 mg/dL (0.2-1.0) 02/20/22 17:30 AST 27 Units/L (15-37) 02/20/22 17:30 ALT 36 Units/L (12-78) 02/20/22 17:30 Alkaline Phosphatase 62 Units/L (46-116) 02/20/22 17:30 Creatine Kinase 52 Units/L (39-308) 02/20/22 17:30 CK-MB (CK-2) < 1.0 ng/mL (0-4.0) 02/20/22 17:30 CK/CKMB % Calc 1.9 % (<4) 02/20/22 17:30 Troponin I High Sens 10.4 ng/L (4.0-60.0) 02/20/22 17:30 Total Protein 9.0 g/dL (6.4-8.2) H 02/20/22 17:30 Albumin 4.8 g/dL (3.4-5.0) 02/20/22 17:30 Globulin 4.2 g/dL (2.5-4.5) 02/20/22 17:30 Albumin/Globulin Ratio 1.1 Ratio (1.1-2.1) 02/20/22 17:30 SARS-CoV-2 (PCR) Negative (NEGATIVE) 02/20/22 20:22 XRAY XRAY Interpreted by: Radiologist (REPORT NOTED.) and Self EKG Rate: 122 [place]: Normal Rhythm: ST Block: None Hypertrophy: None ST: Old, Inf, Ant, Infarct and Nonsp Opioid Opioid Risk Tool Age (Jose Manuel box if 16-45): No History of Preadolescent Sexual Abuse: No Total: 0 Total Score Risk Category: Low Risk Copyright: Mk FLOYD predicting aberrant behaviors Diagnosis Discharge Problem: Acute dehydration Chest pain Qualifiers: Chest pain type: precordial pain Qualified Code(s): R07.2 - Precordial pain Diarrhea Qualifiers: Diarrhea type: unspecified type Qualified Code(s): R19.7 - Diarrhea, unspecified Vomiting Qualifiers: Vomiting type: unspecified Nausea presence: with nausea Qualified Code(s): R11.2 - Nausea with vomiting, unspecified Instructions Instructions: How to Take Your Blood Pressure Nonspecific Chest Pain Nonspecific Chest Pain, Adult, [id number] How to Take Your Blood Pressure, [id number] Chest Wall Pain Forms: Excuse From Work or School Precautions for COVID19 [facility] Patient Portal Social Distancing
[2022-02-20] MEDS ORDERED: NS 1,000 ML IV 1,000 ML ONE (17:18)
[2022-02-20 17:58] LABS: BASOPHILS % (AUTO) 0.3 % (0.2-1.0); EOSINOPHILS % (AUTO) 0.1 % (0.9-2.9); HEMATOCRIT 50.4 % (42.0-54.0); HEMOGLOBIN 17.4 g/dL (13.5-18.0); LYMPHOCYTES # (AUTO) 0.7 X10^3/uL (1.3-2.9); LYMPHOCYTES % (AUTO) 8.1 % (21.0-51.0); MEAN CORPUSCULAR HGB CONC 34.5 g/dL (33.0-35.0); MEAN CORPUSCULAR VOLUME 92.6 fL (80.0-100.0); MEAN PLATELET VOLUME 7.5 fL (7.4-11.0); MONOCYTES # (AUTO) 0.7 x10^3/uL (0.3-0.8); MONOCYTES % (AUTO) 8.2 % (0.0-13.0); NEUTROPHILS # (AUTO) 7.1 x10^3/uL (2.2-4.8); NEUTROPHILS % (AUTO) 83.3 % (42.0-75.0); RED BLOOD COUNT 5.44 X10^6/uL (4.7-6.0); RED CELL DISTRIBUTION WIDTH 13.7 % (11.6-16.5); WHITE BLOOD COUNT 8.5 X10^3/uL (3.6-10.0)
[2022-02-20] MEDS ORDERED: NS 1,000 ML IV 1,000 ML IV SCH (18:00)
[2022-02-20 18:24] LABS: LACTIC ACID 0.9 mmol/L (0.4-2.0)
--- NOTE | 2022-02-20 18:39 | RAD ---
HISTORYnausea and diarrhea since yesterday, as well as dizziness and weakness in the arms. Today, pt broke out in a cold sweat and started having chest pain around 1400 and then again during triage. Relevant Clinical InformationSTUDYCHEST, 1 [id number]/21/2020.FINDINGSThe trachea is midline. The cardiac silhouette is unremarkable. The aorta is tortuous. Dual lead pacemaker in good position. The lungs are clear without focal infiltrate or effusion. The bony thorax is unremarkable.IMPRESSIONNo acute cardiopulmonary findings .Electronically signed by: Kehinde Henry (Feb 20, 2022 18:37:53)
[2022-02-20 19:24] LABS: ALANINE AMINOTRANSFERASE 36 Units/L (12-78); ALBUMIN 4.8 g/dL (3.4-5.0); ALKALINE PHOSPHATASE 62 Units/L (46-116); ASPARTATE AMINO TRANSFERASE 27 Units/L (15-37); BLOOD UREA NITROGEN 28 mg/dL (7-18); CALCIUM 9.2 mg/dL (8.5-10.1); CHLORIDE 102 mmol/L (98-107); CKMB % 1.9 % (<4); COR NA(FOR HYPERGLY) 137 mmol/L (136-145); CREATINE KINASE 52 Units/L (39-308); CREATINE KINASE MB < 1.0 ng/mL (0-4.0); CREATININE 1.52 mg/dL (0.70-1.30); SODIUM 136 mmol/L (136-145); eGFR NON BLACK RACES 50 (>60)
[2022-02-20 19:30] LABS: CARBON DIOXIDE 14.3 mmol/L (21-32)
[2022-02-20 21:59] VITALS: BMI 25.0
[2022-02-20 22:49] LABS: CKMB % 1.7 % (<4); CREATINE KINASE 58 Units/L (39-308); CREATINE KINASE MB < 1.0 ng/mL (0-4.0)
[2022-02-20] MEDS ORDERED: ULTRAM PO PRN (22:52)
[2022-02-20 23:15] LABS: BILIRUBIN,URINE 2+ (NEGATIVE); BLOOD/HEMOGLOBIN,URINE 2+ (NEGATIVE); GLUCOSE, URINE NEGATIVE (NEGATIVE); KETONES,URINE NEGATIVE (NEGATIVE); LEUKOCYTE ESTERASE ,URINE NEGATIVE (NEGATIVE); NITRITES,URINE NEGATIVE (NEGATIVE); PROTEIN,URINE 2+ (NEGATIVE); UROBILINOGEN,URINE NORMAL (NORMAL)
[2022-02-20 23:20] LABS: APPEARANCE,URINE CLEAR (CLEAR); BACTERIA,URINE TRACE /HPF (NEGATIVE); COLOR,URINE DARK YELLOW (YELLOW); HYALINE CASTS, URINE MANY /LPF (NEGATIVE); SQUAMOUS EPITHELIAL CELL,UR FEW /HPF (NEGATIVE)
[2022-02-20] MEDS: NS 1,000 ML IV 1,000 ML IV SCH (23:22)
[2022-02-21] MEDS: NS 1,000 ML IV 1,000 ML IV SCH ×2 (05:00→13:14)
[2022-02-21 06:06] LABS: BASOPHILS % (AUTO) 0.6 % (0.2-1.0); EOSINOPHILS % (AUTO) 0.1 % (0.9-2.9); HEMOGLOBIN 16.3 g/dL (13.5-18.0); LYMPHOCYTES # (AUTO) 1.1 X10^3/uL (1.3-2.9); LYMPHOCYTES % (AUTO) 16.2 % (21.0-51.0); MEAN CORPUSCULAR HEMOGLOBIN 31.2 pg (27.0-34.0); MEAN CORPUSCULAR HGB CONC 33.8 g/dL (33.0-35.0); MEAN CORPUSCULAR VOLUME 92.3 fL (80.0-100.0); MEAN PLATELET VOLUME 7.7 fL (7.4-11.0); MONOCYTES % (AUTO) 14.9 % (0.0-13.0); NEUTROPHILS # (AUTO) 4.8 x10^3/uL (2.2-4.8); NEUTROPHILS % (AUTO) 68.2 % (42.0-75.0); RED CELL DISTRIBUTION WIDTH 14.4 % (11.6-16.5)
[2022-02-21 06:20] LABS: ALANINE AMINOTRANSFERASE 53 Units/L (12-78); ALBUMIN 4.1 g/dL (3.4-5.0); ALKALINE PHOSPHATASE 54 Units/L (46-116); ASPARTATE AMINO TRANSFERASE 41 Units/L (15-37); BLOOD UREA NITROGEN 34 mg/dL (7-18); CALCIUM 8.7 mg/dL (8.5-10.1); CARBON DIOXIDE 22.7 mmol/L (21-32); CHLORIDE 102 mmol/L (98-107); CKMB % 1.3 % (<4); CREATINE KINASE 77 Units/L (39-308); CREATINE KINASE MB < 1.0 ng/mL (0-4.0); CREATININE 1.46 mg/dL (0.70-1.30); MAGNESIUM 1.8 mg/dL (1.7-2.9); SODIUM 138 mmol/L (136-145); eGFR NON BLACK RACES 53 (>60)
[2022-02-21] MEDS ORDERED: NEURONTIN CAP 100 MG PO SCH (09:00)
[2022-02-21] MEDS ORDERED: ASPIRIN EC 81 MG PO SCH (09:00)
[2022-02-21] MEDS ORDERED: BRILINTA PO SCH (09:00)
[2022-02-21] MEDS ORDERED: LEXAPRO PO SCH (09:00)
[2022-02-21] MEDS ORDERED: PROTONIX INJ 40 MG VIAL IVP SCH (09:00)
[2022-02-21] MEDS ORDERED: LEXAPRO ONE (09:32)
[2022-02-21] MEDS: PEPCID 20 MG VIAL 20 MG in NS 50 ML IV 50 ML IV SCH ×2 (09:41→09:42)
[2022-02-21 13:13] VITALS: BP 127/83
[2022-02-21 15:10] LABS: CRYPTOSPORIDIUM PARVUM ANTIGEN NEGATIVE (NEGATIVE); GIARDIA LAMBLIA ANTIGEN NEGATIVE (NEGATIVE)
[2022-02-21] MEDS ORDERED: CRESTOR TAB 10 MG PO SCH (21:00)
--- NOTE | 2022-03-12 13:41 | DR.CARTERS ---
Short Stay Summary - Admission Date Date of Admission: 02/20/22 - Discharge Date Discharge Date: 02/21/22 - Admission Diagnoses (1) Acute dehydration Status: Acute (2) Chest pain Status: Acute (3) Diarrhea Status: Acute (4) Vomiting Status: Acute - Hospital Course Hospital Course: IS A 57 YEAR OLD PATIENT OF OURS. HE PRESENTED TO THE ER WITH COMPLAINTS OF NAUSEA, DIARRHEA, ABDOMINAL CRAMPING, DIZZINESS, CHEST PAIN, GENERALIZED WEAKNESS, AND DIAPHORESIS X 2-3 HOURS PRIOR TO ARRIVAL. CHEST PAIN DESCRIBED INTERMITTENT, LEFT SIDED, AND IS RATED A 3/10. UPON ARRIVAL, HE WAS NOTED TO BE DIAPHORETIC. HE DENIED SHORTNESS OF BREATH OR FEVER. HIS PMH INCLUDES CAD, HTN, [place], ANGIOPLASTY/STENTS, PACEMAKER/DEFIBRILLATOR. ON ARRIVAL, HIS VITALS WERE 98.3-131-20-97%-119/86. LABS WERE OBTAINED. WBC 8.5, RBC 5.44, HGB 17.4, HCT 50.4, D-DIMER <0.27, SODIUM 136, POTASSIUM 3.4, CARBON DIOXIDE 14.3, BUN 28, CREATININE 1.52, GLUCOSE 131, LACTIC ACID 0.9, CALCIUM 9.2, AST 27, ALT 36, ALK PHOS 62, TOTAL PROTEIN 9.0, ALBUMIN 4.8. CARDIAC ENZYMES WERE WITHIN NORMAL LIMITS. URINALYSIS OBTAINED AND REVEALED: WBC 0-2, RBC 3-5, LEUKOCYTES NEGATIVE, BILIRUBIN 2+, PROTEIN 2+. COVID-19 NEGATIVE. BLOOD AND STOOL CULTURES WERE SET UP. A CHEST XRAY WAS OBTAINED NO ACUTE CARDIOPULMONARY FINDINGS. EKG REVEALED: SINUS TACHYCARDIA WITH HR 122. HE WAS ADMITTED TO THE HOSPITALS FOR FURTHER EVALUATION AND TREATMENT OF CHEST PAIN RULE OUT ACUTE [place], DEHYDRATION, DIARREHA, NAUSEA AND VOMITING. HE WAS STARTED ON NS AT 125 ML/HR, TRAMADOL 50MG PO Q4H PRN, PEPCID 20MG IV Q12H, PROTONIX 40MG IV BID, AND HIS HOME MEDICATIONS WERE RESUMED. WE PLAN TO OBTAIN SERIAL CARDIAC ENZYMES AND EKGS AND STOOL STUDIES. OTHERWISE, WE PLANNED TO FOLLOW-UP WITH AM LABS AND CONTINUE TO MONITOR. ON THE MORNING FOLLOWING ADMISSION, PATIENT IS ALERT AND ORIENTED, LYING IN BED ON MORNING ROUNDS. HE DENIES CHEST PAIN OR NAUSEA. HE DOES CONTINUE WITH SOME WEAKNESS AND LOOSE STOOLS. ON EXAMINATION, HEART IS REGULAR IN RATE AND RHYTHM. BILATERAL LUNGS CLEAR TO AUSCULTATION. ABDOMEN IS ROUND, SOFT, AND NON-TENDER WITH HYPERACTIVE BOWEL SOUNDS NOTED. NO UPPER OR LOWER EXTREMITY EDEMA NOTED. HIS VITALS THIS MORNING ARE: 98.2-100-16-97%-116/76. LABS WERE OBTAINED. ABNORMAL LAB VALUES INCLUDE THE FOLLOWING: BUN 134, CREATININE 1.46, GLUCOSE 104, AST 41. CARDIAC ENZYMES HAVE BEEN WITHIN NORMAL LIMITS. NO CHANGES NOTED TO EKGS. STOOL STUDIES WERE POSITIVE FOR OCCULT BLOOD AND WHITE CELLS. BLOOD AND STOOL CULTURES PENDING. HE REQUESTED DISCHARGE HOME. WE PLANNED FOR DISCHARGE. INSTRUCTIONS FOR MEDICATIONS AND FOLLOW-UP WERE DISCUSSED WITH PATIENT AND HIS FAMILY. HE WAS GIVEN NEW PRESCRIPTIONS FOR PEPCID 40MG PO BID AND PROTONIX 40MG PO BID. HE WAS INSTRUCTED TO CONTINUE HIS CURRENT MEDICATIONS WELL WITH NO CHANGES MADE TO DOSAGES. HE WAS ADVISED TO FOLLOW-UP IN THE OFFICE ON 03/01/22. HE WAS DISCHARGED HOME WITH FAMILY IN STABLE CONDITION. TIME SPENT ON CLINICAL ASSESSMENT, REVIEWING LABS AND IMAGING, DECISION MAKING, DISCHARGE INSTRUCTIONS, PREPARING DISCHARGE PAPERS, AND DOCUMENTATION GREATER THAN 75 MINUTES. - Discharge Medications Discharge Medications: Home Medication List carvedilol 6.25 mg PO BID 02/20/22 [History] gabapentin 100 mg PO DAILY 02/20/22 [History] rosuvastatin 20 mg PO DAILY 02/20/22 [History] famotidine [Pepcid] 40 mg PO BID #60 tab 02/21/22 [Rx] pantoprazole 40 mg PO BID #60 tab 02/21/22 [Rx] Prescriptions: famotidine [Pepcid] Og Pittman pantoprazole Og Pittman - Discharge Plan Disposition: 01 HOME, SELF-CARE Condition: Stable Prescriptions: famotidine [Pepcid] 40 mg PO BID #60 tab pantoprazole 40 mg PO BID #60 tab - Follow up/Referrals Follow up/Referrals: Og Pittman [Primary Care Provider] - 03/01/22 2:40 pm - Instructions Instructions: How to Take Your Blood Pressure, Nonspecific Chest Pain, Nonspecific Chest Pain, Adult, [id number], How to Take Your Blood Pressure, [id number], Chest Wall Pain Additional Instructions: DIET TOLERATED. ACTIVITY TOLERATED. Take blood pressure meds and entresto and keep an eye on blood pressure if it gets low stop taking both until you go see doctor kai Forms: Excuse From Work or School, Precautions for COVID19, [facility], Patient Portal, Social Distancing
== END 2022-02-21 13:50 | disposition home or self-care (01) ==
LOC: MED/SURG 16:28 → ER 16:28 → MED/SURG 21:28
PROVIDERS: ADMIT Internal Medicine; ATTEND Internal Medicine
DX: E86.0 Dehydration; I25.10 Atherosclerotic heart disease of native coronary artery without angina pectoris; R94.31 Abnormal electrocardiogram [ECG] [EKG]; Z95.0 Presence of cardiac pacemaker; R11.2 Nausea with vomiting, unspecified; R42 Dizziness and giddiness; I10 Essential (primary) hypertension; R53.1 Weakness; Z20.822 Contact with and (suspected) exposure to COVID-19; R19.7 Diarrhea, unspecified; R07.89 Other chest pain